=== PATIENT | female | born 1985 | race Caucasian/White ===

== ENCOUNTER 2018-06-11 16:28 | Observation (INO) ==
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
[2018-06-11] MEDS ORDERED: Acetaminophen 325 MG Tablet PO PRN (18:09)
[2018-06-11 19:02] LABS: Baso % (Auto) 0.2 % (0.0-2.0); Eos # (Auto) 0.1 th/mm3 (0.0-0.4); Eos % (Auto) 1.6 % (0.0-4.0); Hematocrit 35.8 % (35.0-46.0); Hemoglobin 12.1 gm/dL (11.6-15.3); Lymph # (Auto) 1.5 th/mm3 (1.0-4.8); Mean Corpuscular HGB Conc 33.7 % (32.0-36.0); Mean Corpuscular Hemoglobin 31.2 pg (27.0-34.0); Mean Corpuscular Volume 92.6 fL (80.0-100.0); Mean Platelet Volume 9.8 fL (7.0-11.0); Mono # (Auto) 0.6 th/mm3 (0.0-0.9); Neut # (Auto) 5.3 th/mm3 (1.8-7.7); Neut % (Auto) 70.2 % (16.0-70.0); Platelet Count 197 th/mm3 (150-450); Red Blood Count 3.87 mil/mm3 (4.00-5.30); Red Cell Distribution Width 13.4 % (11.6-17.2); White Blood Count 7.5 th/mm3 (4.0-11.0)
[2018-06-11 19:37] LABS: Amphetamine Urine With Conf Neg (Neg); Benzodiazepine Urine With Conf Neg (Neg)
[2018-06-11 19:40] LABS: Bacteria,Urine Rare /hpf; Bilirubin,Urine Negative (Negative); Clarity,Urine Clear (Clear); Color,Urine Yellow (Yellw/Straw); Glucose,Urine (UA) Negative (Negative); Leukocyte Esterase,Urine Negative (Negative); Nitrite,Urine Negative (Negative); Specific Gravity,Urine 1.012 (1.002-1.035); Squamous Epithelial Cell,Urine 2 /hpf (0-5); Urobilinogen,Urine 4 or Greater mg/dL (Less than 2)
[2018-06-11 20:38] LABS: Hepatitits B Surface Antigen Nonreactive (Nonreactive)
[2018-06-11] MEDS: Prenatal Vit/Ca/Iron/Folic Acid Tablet PO SCH (21:31)
[2018-06-12] MEDS ORDERED: Diphtheria/Tetanus/Pertussis Vaccine Inj 0.5 ML Syringe IM ONE (08:19)
--- NOTE | 2018-06-12 08:47 | P.OBANTE ---
Subjective Interval History: Ms Houston had no acute events overnight. Mood is pleasant. Keeping sitter for 1:1 due to suicide risk until psychiatry advises otherwise. This morning she complains of itching from her eczema that keeps her awake. States she slept after getting benadryl for the itching last night. She has some Curel lotion for eczema. We will order PRN Eucerin cream and benadryl for itching. Denies LOF , VB, but has good FM. Told pt that discharge dependent on psychiatry visit this morning. Discussed Rhogam and will wait until delivery to decide whether to administer once baby's Rh type is known. Pt will receive TDaP today. Denies CP, SOB, N/V/D and DVT pain. Objective Vital Signs and I&O: Vital Signs 06/11/18 17:00 06/11/18 17:03 06/11/18 19:42 Temperature 97.9 F 97.7 F Pulse Rate 75 Respiratory Rate 17 Blood Pressure 130/86 06/11/18 19:43 06/12/18 00:05 06/12/18 05:05 Temperature 98.2 F 98.0 F Pulse Rate 64 64 62 Respiratory Rate 18 16 14 Blood Pressure 136/90 118/66 127/74 Intake & Output 06/11/18 06/12/18 06/12/18 18:59 06:59 18:59 Weight 65.771 kg Lab and Micro Results: Laboratory Results - last 24 hr 06/11/18 06/11/18 06/11/18 17:30 17:30 17:30 WBC 7.5 RBC 3.87 L Hgb 12.1 Hct 35.8 MCV 92.6 MCH 31.2 MCHC 33.7 RDW 13.4 Plt Count 197 MPV 9.8 Neut % (Auto) 70.2 H Lymph % (Auto) 20.0 [place] % (Auto) 8.0 Eos % (Auto) 1.6 Baso % (Auto) 0.2 Neut # (Auto) 5.3 Lymph # (Auto) 1.5 [place] # (Auto) 0.6 Eos # (Auto) 0.1 Baso # (Auto) 0.0 WBC Differential . Differential Comment Auto diff final Urine Color Urine Clarity Urine pH Ur Specific [place] Urine Protein Urine Glucose (UA) Urine Ketones Urine Occult Blood Urine Nitrate Urine Bilirubin Urine Urobilinogen Ur Leukocyte Esterase Urine RBC Urine WBC Ur Squamous Epith Cells Urine Bacteria Urine Opiates Screen Ur Barbiturates Screen Ur Amphetamine Screen U Benzodiazepines Scrn Urine Cocaine Screen U Cannabinoids Screen Chlam trachomat DNA PCR Hep Bs Antigen Nonreactive Hep B Core IgM Ab Nonreactive Hep C IgG Ab Nonreactive HIV 1&2 Ab/P24 Ag 4thGn Nonreactive N.gonorrhoeae DNA (PCR) Rubella Immunity Screen Immune Rubella Ab, Quant 41.2 Blood Type Blood Type Recheck Antibody Screen 06/11/18 06/11/18 06/11/18 17:30 17:30 17:30 WBC RBC Hgb Hct MCV MCH MCHC RDW Plt Count MPV Neut % (Auto) Lymph % (Auto) [place] % (Auto) Eos % (Auto) Baso % (Auto) Neut # (Auto) Lymph # (Auto) [place] # (Auto) Eos # (Auto) Baso # (Auto) WBC Differential Differential Comment Urine Color Urine Clarity Urine pH Ur Specific [place] Urine Protein Urine Glucose (UA) Urine Ketones Urine Occult Blood Urine Nitrate Urine Bilirubin Urine Urobilinogen Ur Leukocyte Esterase Urine RBC Urine WBC Ur Squamous Epith Cells Urine Bacteria Urine Opiates Screen Neg Ur Barbiturates Screen Neg Ur Amphetamine Screen Neg U Benzodiazepines Scrn Neg Urine Cocaine Screen Neg U Cannabinoids Screen Pos H Chlam trachomat DNA PCR Not detected Hep Bs Antigen Hep B Core IgM Ab Hep C IgG Ab HIV 1&2 Ab/P24 Ag 4thGn N.gonorrhoeae DNA (PCR) Not detected Rubella Immunity Screen Rubella Ab, Quant Blood Type O Negative Blood Type Recheck Required Antibody Screen Negative 06/11/18 17:30 WBC RBC Hgb Hct MCV MCH MCHC RDW Plt Count MPV Neut % (Auto) Lymph % (Auto) [place] % (Auto) Eos % (Auto) Baso % (Auto) Neut # (Auto) Lymph # (Auto) [place] # (Auto) Eos # (Auto) Baso # (Auto) WBC Differential Differential Comment Urine Color Yellow Urine Clarity Clear Urine pH 7.0 Ur Specific [place] 1.012 Urine Protein Negative Urine Glucose (UA) Negative Urine Ketones Negative Urine Occult Blood Small H Urine Nitrate Negative Urine Bilirubin Negative Urine Urobilinogen 4 or greater Ur Leukocyte Esterase Negative Urine RBC Less than 1 Urine WBC 1 Ur Squamous Epith Cells 2 Urine Bacteria Rare H Urine Opiates Screen Ur Barbiturates Screen Ur Amphetamine Screen U Benzodiazepines Scrn Urine Cocaine Screen U Cannabinoids Screen Chlam trachomat DNA PCR Hep Bs Antigen Hep B Core IgM Ab Hep C IgG Ab HIV 1&2 Ab/P24 Ag 4thGn N.gonorrhoeae DNA (PCR) Rubella Immunity Screen Rubella Ab, Quant Blood Type Blood Type Recheck Antibody Screen Physical Exam: GENERAL: Well-nourished, well-developed patient. CARDIOVASCULAR: Regular rate and rhythm without murmurs, gallops, or rubs. RESPIRATORY: Breath sounds equal bilaterally. No accessory muscle use. ABDOMEN/GI: Abdomen soft, non-tender, gravid. Fundus: - GENITOURINARY: External Genitalia: deferred Cervical exam performed 06/11 Cervix: open Dilatation: 1-2 Effacement: 50 Station: - Presentation: -3 Membranes: intact Uterine Contractions: absent FHT's: 06/12/18 Category: 1 Baseline: 125 Reactive: yes Variability: moderate Decels: absent EXTREMITIES: No cyanosis or edema, non-tender, without signs of DVT. Assessment and Plan - Diagnosis (1) Normal in multigravida in third trimester Code(s): Z34.83 - Encounter for supervision of other normal , third trimester Status: Acute Plan: 32 YO at 35/4 weeks per OB limited US 06/11/18 due to late PNC [facility] who referred her to [facility]. Glucola performed at [facility]. Cervix is 1-2/50/-3. FHT with Cat 1 tracing, BL 125, reactive, moderate, and absent decels. Admitted for observation due to moderate-high suicide risk. 1. IUP 35 weeks -Monitor and toco qshift, reassuring FHT strip as above -Limited OB US showing EFW 5lb 15oz with EDC 07/12/18 (35/4 weeks) based on US ; incidental BPP 07/04 with NIYA 15.88 - labs pending, including GBS -UA negative -Encourage smoking cessation -Pt Rh negative; Rhogam deferred until baby Rh type known at -TDaP ordered for today -UDS+ cannabis -PNV 2. Depression -Admitted for OBS due to suicide risk -Performed suicide assessment: moderate-high risk on 06/11/18 -Pt initially denied SI, but then stated she has a plan -Psychiatry consulted; Dr Sloan states she will be seen this morning -Sitter for 1:1 -Case Management consult to assess for needs 3. Eczema -Pt using Curel lotion -Eucerin cream qid -Benadryl 25 mg q6h PO PRN, itching Pt DW Dr Redmond and SW Dr Reilly (2) Depression affecting in third trimester, antepartum Code(s): O99.343 - Other mental disorders complicating , third trimester; F32.9 - Major depressive disorder, single episode, unspecified Status: Acute (3) Eczema Code(s): F32.9 - Major depressive disorder, single episode, unspecified Status : Acute
[2018-06-12] MEDS: Prenatal Vit/Ca/Iron/Folic Acid Tablet PO SCH (10:20)
[2018-06-12 14:56] LABS: Hepatitis A IgM Antibody Nonreactive (Nonreactive)
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
== END 2018-06-12 18:06 ==
LOC: H2E 16:28 → HOBED 16:28 → H2E 19:16
PROVIDERS: ADMIT Obstetrics & Gynecology; ATTEND Obstetrics & Gynecology

== ENCOUNTER 2018-06-12 17:45 | Inpatient (IN) ==
[2018-06-12] MEDS ORDERED: Acetaminophen 325 MG Tablet PO PRN (21:11)
[2018-06-12] MEDS ORDERED: Aluminum/Magnesium/Simethacone Susp 30 ML UDC PO PRN (21:11)
[2018-06-13 09:14] LABS: Anion Gap 10 meq/L (5-15); Blood Urea Nitrogen 10 mg/dL (7-18); Calcium 8.7 mg/dL (8.5-10.1); Carbon Dioxide 23.4 meq/L (21.0-32.0); Chloride 107 meq/L (98-107); Glomerular Filtration Rate Greater Than 89 mL/min (>89); Glucose,Random 57 mg/dL (74-106); Potassium 4.1 meq/L (3.5-5.1); Sodium 140 meq/L (136-145)
[2018-06-13 09:17] LABS: Chol/HDL Ratio 3.69 Ratio; HDL Cholesterol 67.9 mg/dL (40.0-60.0)
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
[2018-06-13] MEDS: Prenatal Vit/Ca/Iron/Folic Acid Tablet PO SCH (10:58)
[2018-06-13] MEDS ORDERED: [UNRECOGNIZED DRUG - REMARK] OTHER SCH (15:00)
[2018-06-13] MEDS ORDERED: Sertraline 50 MG Tablet PO ONE (15:12)
[2018-06-14 06:00] VITALS: RESP 16
[2018-06-14] MEDS: Sertraline 50 MG Tablet PO SCH (08:53)
[2018-06-14] MEDS: Prenatal Vit/Ca/Iron/Folic Acid Tablet PO SCH (08:53)
--- NOTE | 2018-06-14 14:52 | P.PNPSY ---
Subjective Remarks: Patient seen for follow, chart reviewed. Discussion nursing staff reported the patient continued to be tearful, compliant with medications. Patient was found sitting hospital bed noted B, cooperative. Patient states that his mood has been "more of a light in front of me". Patient continues report feeling depressed but more hopeful today and denying any suicidal ideations. Patient states that she has slept well, eating and drinking well, having some constipation and she has not had a bowel movement 2 days. Patient continues to do noted to be somewhat tearful throughout interview but stated that she has a plan to coordinate with the adoption agency for housing until delivery of the baby. Patient denies any perceptional services or delusions. Review of Systems All other systems reviewed negative except as stated in HPI Mental Status Examination Appearance: Appropriate Consciousness: Alert Orientation: x4 Motor Activity: Normal gait Speech: Unremarkable Language: Adequate Fund of Knowledge: Inadequate Attention and Concentration: Adequate Memory: Unremarkable Mood: Sad Affect: Sad, Other (Tearful) Thought Process & Associations: Intact, Logical, Linear Thought Content: Appropriate Hallucination Type: None Delusion Type: None Suicidal Ideation: No Suicidal Plan: No Suicidal Intention: No Homicidal Ideation: No Homicidal Plan: No Homicidal Intention: No Insight: Fair Judgment: Impulsive Assessment and Plan - Assessment (1) Major depressive disorder Code(s): F32.9 - Major depressive disorder, single episode, unspecified Status : Acute - Plan Plan: Patient continues with depressed mood although lessening and now more hopeful and denying any suicide ideations. We will continue to titrate sertraline to 50 mg p.o. daily for depression, continue rest of medications. We will add Colace 100 mg p.o. twice daily for constipation. We will continue to monitor mood and behavior. Discharge planning in progress. Justification for Continued Inpatient Stay: At risk of further decompensation a lower level care. (1) Major depressive disorder Qualifiers: Major depression recurrence: single episode Active/Remission status: currently active Major depression episode severity: severe Psychotic features : without psychotic features Qualified Code(s): F32.2 - Major depressive disorder, single episode, severe without psychotic features
[2018-06-14] MEDS: Docusate Sodium 100 MG Capsule PO SCH (15:43)
[2018-06-15] MEDS: Docusate Sodium 100 MG Capsule PO SCH ×2 (05:20→12:07)
[2018-06-15 06:07] VITALS: BP 122/69; PULSE 73; TEMP 97.8; O2SAT 100
[2018-06-15] MEDS: Prenatal Vit/Ca/Iron/Folic Acid Tablet PO SCH (08:02)
[2018-06-15] MEDS: Sertraline 50 MG Tablet PO SCH (08:02)
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
== END 2018-06-15 12:45 | disposition home or self-care (01) ==
LOC: H4EA 17:45
PROVIDERS: ADMIT Student in an Organized Health Care Education/Training Program; ATTEND Student in an Organized Health Care Education/Training Program
DX: O99.333 Smoking (tobacco) complicating pregnancy, third trimester; Z3A.35 35 weeks gestation of pregnancy; F17.210 Nicotine dependence, cigarettes, uncomplicated; Z85.41 Personal history of malignant neoplasm of cervix uteri; Z88.0 Allergy status to penicillin; O99.343 Other mental disorders complicating pregnancy, third trimester; O99.323 Drug use complicating pregnancy, third trimester; F12.90 Cannabis use, unspecified, uncomplicated; L30.9 Dermatitis, unspecified; F32.2 Major depressive disorder, single episode, severe without psychotic features; Z91.410 Personal history of adult physical and sexual abuse; K59.00 Constipation, unspecified; R45.851 Suicidal ideations

== ENCOUNTER 2018-06-25 15:11 | Inpatient (IN) ==
[2018-06-25] MEDS ORDERED: Measles/Mumps/Rubella Vaccine Inj 0.5 ML Vial SQ ONE (16:00)
[2018-06-25] MEDS ORDERED: Diphtheria/Tetanus/Pertussis Vaccine Inj 0.5 ML Syringe IM ONE (16:00)
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
[2018-06-25] MEDS ORDERED: Zolpidem Tartrate 5 MG Tablet PO PRN ×2 (16:16→21:00)
[2018-06-25] MEDS ORDERED: Acetaminophen 325 MG Tablet PO PRN ×2 (16:16→20:51)
--- NOTE | 2018-06-25 16:16 | P.HPOB ---
History of Present Illness Primary Care Physician: NOT REQUIRED Dr. Tompkins Chief Complaint: Contractions, sent over from the office History of Present Illness: Patient is a 32-year-old white female 3738 weeks presents with contractions and sent over from the Dr. Tompkins's office. The patient was noted to be 4 cm in her office. She has no rupture membranes and only minimal bleeding. heart rate tracing is reactive she is liam irregularly. Weeks Gestation:: 37 Para: 2 : 4 Total # of Miscarriage(s): 1 Review of Systems Constitutional: Denies anorexia, Denies body ache(s), Denies chills, Denies daytime sleepiness, Denies excessive sweating, Denies fatigue, Denies fever(s), Denies headache(s), Denies increased appetite, Denies lack of energy, Denies malaise, Denies night sweats, Denies weakness, Denies weight gain, Denies weight loss, Denies other Cardiovascular: Denies bluish discoloration of hand/feet, Denies chest pain, Denies chest pain at rest, Denies chest pain with activity, Denies excessive sweating, Denies fainting, Denies fast heart rate, Denies foot swelling, Denies generalized swelling, Denies irregular heart rhythm, Denies leg pain with activity, Denies leg sores, Denies leg swelling, Denies lightheadedness, Denies radiating jaw, neck or arm pain, Denies rapid, pounding, or irregular heartbeat , Denies shortness of breath, Denies shortness of breath with activity, Denies shortness of breath when lying down, Denies shortness of breath causing sudden awakening, Denies slow heart rate, Denies other Respiratory: Denies change in phlegm color, Denies chest congestion, Denies cough, Denies coughing up blood, Denies excessive phlegm production, Denies pain on inspiration, Denies pain with cough, Denies shortness of breath, Denies shortness of breath with activity, Denies snoring, Denies stridor, Denies wheezing, Denies other Gastrointestinal: Denies abdominal pain, Denies belching, Denies black, tarry stools, Denies bloating, Denies bright, red blood in stools, Denies change in bowel habits, Denies constant urge to pass stool, Denies change in stools, Denies coffee ground vomit, Denies constipation, Denies cramping, Denies difficulty swallowing, Denies excessive passing of gas, Denies feeling full early, Denies heartburn, Denies incontinent of stools, Denies loose stools, Denies nausea, Denies pain with swallowing, Denies vomiting, Denies vomiting blood, Denies other Genitourinary: Denies abnormal periods, Denies abnormal vaginal bleeding, Denies absent period, Denies bleeding between periods, Denies blood in urine, Denies difficulty starting urination, Denies difficulty urinating, Denies dribbling after urination, Denies frequent nighttime urination, Denies genital itching, Denies genital lesions, Denies heavy periods, Denies hot flashes, Denies light periods, Denies nipple discharge, Denies painful intercourse, Denies painful periods, Denies painful urination, Denies pelvic pain, Denies prolapse symptoms, Denies sexual problems, Denies side pain, Denies urinary incontinence, Denies urinary urgency, Denies vaginal discharge, Denies vaginal dryness, Denies vaginal odor, Denies vaginal itching, Denies other Neurologic: Denies abnormal hearing, Denies abnormal movements, Denies abnormal speech, Denies abnormal walking, Denies behavioral changes, Denies burning sensations, Denies confusion, Denies dizziness, Denies fainting, Denies frequent falls, Denies headache(s), Denies lack of coordination, Denies localized weakness, Denies loss of vision, Denies memory loss, Denies numbness, Denies other visual disturbances, Denies radiating pain, Denies restless legs, Denies convulsions, Denies seizure-like activity, Denies sensory deficit, Denies tingling, Denies tingling/numbness/burning sensations, Denies tremor(s), Denies unsteadiness, Denies weakness, Denies other PMFSH - Medical History Medical History: Medical History (Last Updated 06/11/18 @ 17:31 by Roberto Carlos Fuller III, MD, R2) 36 weeks gestation of Decreased movement affecting management of in third trimester Eczema Major depressive disorder - Family History Family History: Family History (Last Updated 06/11/18 @ 17:31 by Roberto Carlos Fuller III, MD, R2) Other Adopted - Tobacco History Second Hand Smoke Exposure: Yes Smoking Status: Current every day smoker Tobacco Type: Cigarettes Cigarettes Per Day: 10 - Alcohol History How Often Do You Have a Drink Containing Alcohol: Monthly or less (quit drinking in December) - Substance Use History Substance History: Active Abuse - Travel History History of Recent Travel: No Recent Travel in the [place] Within the Last 8 Weeks: No Recent Travel Out of the Country Within the Last 8 Weeks: No Medications and Allergies Allergies Allergy/AdvReac Type Severity Reaction Status Date / Time Penicillins Allergy Swelling Verified 06/11/18 16:43 of Lip/Tongue/Throat Exam Vital signs: Vital Signs 06/25/18 15:32 06/25/18 15:35 06/25/18 16:05 Temperature 98.3 F Pulse Rate 70 77 Respiratory Rate 18 Blood Pressure 131/76 Intake & Output 06/24/18 06/25/18 06/25/18 18:59 06:59 18:59 Weight 66.224 kg - Constitutional no acute distress - Routine HEENT Exam Head: Present: normocephalic, atraumatic Eye: Present: PERRL - Routine Respiratory Exam Present: CTA bilaterally - Routine Cardiovascular Exam Present: RRR - Routine Abdominal Exam Present: soft Comments: Size equal dates - Routine Exam Comments: Cervix is 5/80/ -1/vtx with a bulging bag - Routine Skin Exam Present: intact - Routine Neurological Exam Present: alert, oriented X3, CN II-XII intact Caprini VTE Risk Assessment Caprini VTE Risk Assessment: No/Low Risk (score <= 1) Caprini Risk Assessment Model: Point Value = 1 Point Value = 2 Point Value = 3 Point Value = 5 Age 41-60 Minor surgery BMI > 25 kg/m2 Swollen legs Varicose veins or History of unexplained or recurrent spontaneous Oral contraceptives or hormone replacement Sepsis (< 1 month) Serious lung disease, including pneumonia (< 1 month) Abnormal pulmonary function Acute myocardial infarction Congestive heart failure (< 1 month) History of inflammatory bowel disease Medical patient at bed rest Age 61-74 Arthroscopic surgery Major open surgery (> 45 min) Laparoscopic surgery (> 45 min) Malignancy Confined to bed (> 72 hours) Immobilizing plaster cast Central venous access Age >= 75 History of VTE Family history of VTE Factor V Leiden Prothrombin [id number] Lupus anticoagulant Anticardiolipin antibodies Elevated serum homocysteine Heparin-induced thrombocytopenia Other congenital or acquired thrombophilia Stroke (< 1 month) Elective arthroplasty Hip, pelvis, or leg fracture Acute spinal cord injury (< 1 month) Prophylaxis Regimen: Total Risk Factor Score Risk Level Prophylaxis Regimen 0-1 Low Early ambulation 2 Moderate Order ONE of the following: *Sequential Compression Device (SCD) *Heparin 5000 units SQ BID 3-4 Higher Order ONE of the following medications: *Heparin 5000 units SQ TID *Enoxaparin/Lovenox 40 mg SQ daily (WT < 150 kg, CrCl > 30 mL/min) *Enoxaparin/Lovenox 30 mg SQ daily (WT < 150 kg, CrCl > 10-29 mL/min) *Enoxaparin/Lovenox 30 mg SQ BID (WT < 150 kg, CrCl > 30 mL/min) AND/OR *Sequential Compression Device (SCD) 5 or more Highest Order ONE of the following medications: *Heparin 5000 units SQ TID (Preferred with Epidurals) *Enoxaparin/Lovenox 40 mg SQ daily (WT < 150 kg, CrCl > 30 mL/min) *Enoxaparin/Lovenox 30 mg SQ daily (WT < 150 kg, CrCl > 10-29 mL/min) *Enoxaparin/Lovenox 30 mg SQ BID (WT < 150 kg, CrCl > 30 mL/min) AND *Sequential Compression Device (SCD) Assessment and Plan - Diagnosis (1) Uterine contractions during Code(s): O62.2 - Other uterine inertia Status: Acute (2) 37 or more weeks gestation of Status: Acute - Plan Because this patient is a multiparous patient with advanced dilated cervix 5 cm 80% effaced so the patient is to be kept and monitored for cervical change her labor progress. Another point that supports that decision is to fax she lives in a hotel and would have to get a cab or Uber route delivery driver to bring her to the hospital if things worsen there so she needs to be monitored here overnight and in the morning if she still the same the contractions are spaced out or stopped and she could go home at that point but it is quite likely in the night things will change for this patient
[2018-06-25] MEDS ORDERED: Sod Chloride 0.9% Inj 1,000 ML IV.CONT PRN (18:30)
[2018-06-25] MEDS ORDERED: fentaNYL Citrate Inj 100 MCG/2 ML Ampul IV.PUSH PRN ×2 (18:30)
[2018-06-25] MEDS ORDERED: Naloxone Inj 0.4 MG/ML Vial IV.PUSH PRN ×2 (18:30→20:51)
[2018-06-25] MEDS ORDERED: Sodium Chlor 0.9% Inj 500 ML IV.SIG PRN (18:30)
[2018-06-25] MEDS ORDERED: Citric Acid/Sodium Citrate Liq 30 ML UDC PO SCH (18:30)
[2018-06-25] MEDS ORDERED: Oxytocin 30 Units/500ml Premix 30 UNITS/500 ML BAG IV.SIG ONE (18:30)
--- NOTE | 2018-06-25 18:30 | P.OBLABOR ---
Subjective Interval history: patient sent from office and evaluated by Dr. Osei H & P dictated. I checked her cervix at 5 and caused ROM inadevertantly (before IV) she was admitted. strip category one. contractions are mild She was 7 cm. clear copious fluid. Objective Vital Signs: Vital Signs - 8 hr 06/25/18 15:32 06/25/18 15:35 06/25/18 16:05 Temperature 98.3 F Pulse Rate 70 77 Respiratory Rate 18 Blood Pressure 131/76 06/25/18 18:15 06/25/18 18:16 Temperature 99.2 F Pulse Rate 69 72 Respiratory Rate 16 Blood Pressure 132/85 Objective: Pelvic Exam: Cervix: [-] Dilatation: [-] Effacement: [-] Station: [-] Presentation: [-] Membranes: [intact or ruptured] Uterine Contractions: [-] FHT's: Category: [-] Baseline: [-] Reactive: [-] Variability: [-] Decels: [-] Assessment and Plan - Plan Because this patient is a multiparous patient with advanced dilated cervix 5 cm 80% effaced so the patient is to be kept and monitored for cervical change her labor progress. Another point that supports that decision is to fax she lives in a hotel and would have to get a cab or Uber motorcoach driver to bring her to the hospital if things worsen there so she needs to be monitored here overnight and in the morning if she still the same the contractions are spaced out or stopped and she could go home at that point but it is quite likely in the night things will change for this patient
[2018-06-25] MEDS ORDERED: Oxytocin 30 Units/500ml Premix 30 UNITS/500 ML BAG IV.SIG PRN (18:40)
[2018-06-25 19:09] LABS: Baso # (Auto) 0.1 th/mm3 (0.0-0.2); Baso % (Auto) 0.5 % (0.0-2.0); Eos # (Auto) 0.1 th/mm3 (0.0-0.4); Eos % (Auto) 1.1 % (0.0-4.0); Hematocrit 38.4 % (35.0-46.0); Hemoglobin 12.9 gm/dL (11.6-15.3); Lymph # (Auto) 1.8 th/mm3 (1.0-4.8); Mean Corpuscular HGB Conc 33.5 % (32.0-36.0); Mean Corpuscular Hemoglobin 30.6 pg (27.0-34.0); Mean Corpuscular Volume 91.2 fL (80.0-100.0); Mean Platelet Volume 10.3 fL (7.0-11.0); Mono # (Auto) 0.6 th/mm3 (0.0-0.9); Mono % (Auto) 4.5 % (0.0-8.0); Neut # (Auto) 10.3 th/mm3 (1.8-7.7); Neut % (Auto) 79.9 % (16.0-70.0); Platelet Count 185 th/mm3 (150-450); Red Blood Count 4.21 mil/mm3 (4.00-5.30); Red Cell Distribution Width 14.1 % (11.6-17.2); White Blood Count 12.9 th/mm3 (4.0-11.0)
[2018-06-25 19:10] LABS: Amorphous Sediment,Urine Rare /hpf; Bilirubin,Urine Negative (Negative); Calcium Oxalate Crystals,Urine Occasional /hpf; Clarity,Urine Cloudy (Clear); Color,Urine Yellow (Yellw/Straw); Glucose,Urine (UA) Negative (Negative); Leukocyte Esterase,Urine Negative (Negative); Mucus,Urine Few /lpf (Occasional); Nitrite,Urine Negative (Negative); Specific Gravity,Urine 1.017 (1.002-1.035); Squamous Epithelial Cell,Urine 1 /hpf (0-5)
[2018-06-25 19:12] LABS: Amphetamine Screen,Urine Neg (Neg); Barbiturate Screen,Urine Neg (Neg); Cannabinoid Screen,Urine Pos (Neg); Cocaine Screen,Urine Neg (Neg); Opiate Screen,Urine Neg (Neg)
[2018-06-25] MEDS ORDERED: Lidocaine PF 1% Inj 30 ML Vial ONE (19:37)
[2018-06-25] MEDS ORDERED: Lidocaine 1% Inj 50 ML Vial ONE (19:42)
[2018-06-25 19:50] LABS: Amphetamine Urine With Conf Neg (Neg); Benzodiazepine Urine With Conf Neg (Neg)
[2018-06-25] MEDS ORDERED: Benzocaine 20% Top Spray 60 ML Can TOPICAL PRN (20:51)
[2018-06-25] MEDS ORDERED: Bisacodyl 10 MG Supp RECTAL PRN (20:51)
[2018-06-25] MEDS ORDERED: Sertraline 50 MG Tablet PO ONE (20:53)
--- NOTE | 2018-06-25 20:55 | P.OBDELI ---
Weeks Gestation: 37 Patient Started Active Labor: Yes Medical Induction of Labor: No Artificial Rupture of Membrane: No Anesthesia: None Episiotomy: none Vaginal Delivery: Normal Presentation: Occiput anterior Nuchal Cord: None Delayed Cord Clamping (45 sec): Yes Placenta: Spontaneous delivery, Other (bilobed placenta) Estimated blood loss (mL): 200 : Male (9 and 9 apgars weight pending baby for adoption bilobed placenta) , Single, Multiple (being placed for adoption)
[2018-06-25] MEDS ORDERED: Witch Hazel 50%/Glyderin 12.5% 40 Pad Jar RECTAL PRN (21:00)
[2018-06-25] MEDS ORDERED: Oxytocin 30 Units/500ml Premix 30 UNITS/500 ML BAG IV.CONT SCH (21:00)
[2018-06-25] MEDS: Ibuprofen 400 MG Tablet PO PRN (21:34)
[2018-06-25] MEDS: Senna/Docusate Sodium 8.6/50 MG Tablet PO SCH (22:50)
[2018-06-26] MEDS: Ibuprofen 400 MG Tablet PO PRN ×3 (05:23→22:48)
--- NOTE | 2018-06-26 07:49 | P.PNOB ---
Subjective Post day: 1 Interval history: Patient doing well, vaginal bleeding less than menses, mood appropriate, no suicidal homicidal ideations, pain controlled. Objective Vital Signs/I&O: Vital Signs 06/25/18 15:32 06/25/18 15:35 06/25/18 16:05 Temperature 98.3 F Pulse Rate 70 77 Respiratory Rate 18 Blood Pressure 131/76 06/25/18 17:25 06/25/18 17:55 06/25/18 18:15 Temperature Pulse Rate 72 75 69 Respiratory Rate Blood Pressure 06/25/18 18:16 06/25/18 19:34 06/25/18 19:35 Temperature 99.2 F Pulse Rate 72 68 Respiratory Rate 16 18 Blood Pressure 132/85 144/91 H 06/25/18 20:58 06/25/18 20:59 06/25/18 21:15 Temperature 97.6 F Pulse Rate 73 68 Respiratory Rate 18 Blood Pressure 155/86 H 156/90 H 06/25/18 21:16 06/25/18 21:33 06/25/18 22:30 Temperature Pulse Rate 64 67 Respiratory Rate 18 18 Blood Pressure 144/93 H 148/94 H 06/25/18 23:00 Temperature 98.0 F Pulse Rate 69 Respiratory Rate 18 Blood Pressure 133/77 Intake & Output 06/25/18 06/26/18 06/26/18 18:59 06:59 18:59 Weight 66.224 kg Result Diagrams: 06/25/18 18:33 Objective Remarks: GENERAL: Well-nourished, well-developed patient. CARDIOVASCULAR: Regular rate and rhythm without murmurs, gallops, or rubs. RESPIRATORY: Breath sounds equal bilaterally. No accessory muscle use. ABDOMEN/GI: Abdomen soft, non-tender. Fundus: Firm, non-tender at umbilicus. GENITOURINARY: Light to moderate bleeding. EXTREMITIES: No cyanosis or edema, non-tender, without signs of DVT. Medications and IVs: Active Medications Acetaminophen (Tylenol) 650 mg PO Q4H PRN PRN Reason: PAIN SCALE 1 TO 2 Al Hydroxide/Mg Hydroxide (Milk Of Magnesia Liq) 30 ml PO Q12H PRN PRN Reason: Mild Constipation Benzocaine (Americaine 20% Top [place]) 1 spray TOPICAL Q4H PRN PRN Reason: For Perineum Discomfort Last Admin: 06/26/18 05:23 Dose: 1 spray Bisacodyl (Dulcolax Supp) 10 mg RECTAL DAILY PRN PRN Reason: SEVERE CONSITIPATION Citric Acid/Sodium Citrate (Sodium Citrate/Citric Acid Liq) 30 ml PO DATA REPORT ANALYST [facility] Stop: 06/29/18 18:29 Fentanyl Citrate (Fentanyl Inj) 50 mcg IV.PUSH Q1H PRN PRN Reason: Pain Scale 3 - 5 Fentanyl Citrate (Fentanyl Inj) 100 mcg IV.PUSH Q1H PRN PRN Reason: PAIN SCALE 6 TO 10 Last Admin: 06/25/18 19:36 Dose: 100 mcg Lactated Ringer's (Lr 1000 Ml Inj) 1,000 mls @ 125 mls/hr IV.CONT .Q8H JT Last Admin: 06/25/18 22:44 Dose: Not Given Lactated Ringer's (Lr 1000 Ml Inj) 1,000 mls @ 3,000 mls/hr IV.SIG UNSCH PRN PRN Reason: compromise or epidural Sodium Chloride (Ns Inj) 500 mls @ 1,000 mls/hr IV.SIG UNSCH PRN PRN Reason: SEE LABEL COMMENTS Sodium Chloride (Ns Inj) 1,000 mls @ 100 mls/hr IV.CONT .Q10H PRN PRN Reason: SEE LABEL COMMENTS Oxytocin (Pitocin 30 Units/Ns 500 Ml Premix) 30 units in 500 mls @ 2 mls/hr IV.SIG TITRATE PRN; Protocol PRN Reason: For induction of labor Ibuprofen (Motrin) 800 mg PO Q8H PRN PRN Reason: For cramping Last Admin: 06/26/18 05:23 Dose: 800 mg Lactulose (Lactulose Liq) 30 ml PO DAILY PRN PRN Reason: SEVERE CONSITIPATION Lidocaine HCl (Xylocaine 1% Inj) 0.1 ml I-DERMAL PRN PRN PRN Reason: For IV start Stop: 06/28/18 18:29 Lidocaine HCl (Xylocaine 1% Inj) 10 ml INFILTRATN PRN PRN PRN Reason: For episiotomy repair Stop: 06/27/18 18:29 Mineral Oil (Muri-Lube Oil) 10 ml TOPICAL PRN PRN PRN Reason: PRN perineal massage Naloxone HCl (Narcan Inj) 0.1 mg IV.PUSH Q2M PRN PRN Reason: for opiate reversal Naloxone HCl (Narcan Inj) 0.1 mg IV.PUSH Q2M PRN PRN Reason: for opiate reversal Non-Formulary Medication (Prenat.Vits,Uriel,Qfz-Ganx-Tshaw [ Vitamin]) 1 tab PO DAILY [facility] Ondansetron HCl (Zofran Odt) 4 mg PO Q6H PRN PRN Reason: NAUSEA OR VOMITING Ondansetron HCl (Zofran Odt) 4 mg PO Q6H PRN PRN Reason: NAUSEA OR VOMITING Senna/Docusate Sodium (Rossana-Colace) 1 tab PO BID [facility] Last Admin: 06/25/18 22:50 Dose: 1 tab Sennosides (Senokot) 17.2 mg PO Q12H PRN PRN Reason: Moderate Constipation Sertraline HCl (Zoloft) 50 mg PO DAILY [facility] Sodium Chloride (Ns Flush) 2 ml IV.FLUSH BID [facility] Last Admin: 06/25/18 22:45 Dose: Not Given Sodium Chloride (Ns Flush) 2 ml IV.FLUSH PRN PRN PRN Reason: FLUSH AFTER USING IV ACCESS Sodium Chloride (Ns Flush) 2 ml IV.FLUSH BID [facility] Last Admin: 06/25/18 22:45 Dose: Not Given Sodium Chloride (Ns Flush) 2 ml IV.FLUSH PRN PRN PRN Reason: FLUSH AFTER USING IV ACCESS Witch Katerin/Glycerin (Tucks Pads) 1 applicatio RECTAL QID PRN PRN Reason: HEMORRHOIDS Last Admin: 06/26/18 05:23 Dose: 1 applicatio Zolpidem Tartrate (Ambien) 5 mg PO HS PRN PRN Reason: SLEEP Last Admin: 06/25/18 23:00 Dose: 5 mg Zolpidem Tartrate (Ambien) 5 mg PO HS PRN PRN Reason: SLEEP Assessment and Plan - Plan 32-year-old 0-2 status post at 37 weeks and 4 days 1. day #1: Afebrile, vital signs stable, continue routine care, discussed precautions, expectations and follow-up. Anticipate discharge home tomorrow. -New born male is up for adoption: Consult case management for assistance. 2. History of depression: Continue her home Zoloft, follow-up in 2 weeks in the office for mood check 3. Marijuana use/History of opioid use disorder: Sent with NSAIDs only for pain control, patient is not breast-feeding. 4. Elevated blood pressures: Around time of delivery, normotensive since, discussed preeclampsia precautions.
[2018-06-26] MEDS: Senna/Docusate Sodium 8.6/50 MG Tablet PO SCH (08:00)
[2018-06-26] MEDS: Sertraline 50 MG Tablet PO SCH (08:00)
[2018-06-26] MEDS ORDERED: Non-Formulary Drug (Prenat.Vits,Cal,Min-Iron-Folic [Prenatal Vitamin] 1 TAB) PO SCH (09:00)
[2018-06-27] MEDS: Sertraline 50 MG Tablet PO SCH (08:32)
[2018-06-27] MEDS: Ibuprofen 400 MG Tablet PO PRN (08:33)
[2018-06-27] MEDS: Senna/Docusate Sodium 8.6/50 MG Tablet PO SCH ×2 (08:33→08:36)
--- NOTE | 2018-06-27 08:38 | P.PNOB ---
Subjective Post day: 2 Objective Vital Signs/I&O: Vital Signs 06/26/18 20:00 Temperature 98.5 F Pulse Rate 64 Respiratory Rate 18 Blood Pressure 119/72 Result Diagrams: 06/25/18 18:33 Objective Remarks: GENERAL: Well-nourished, well-developed patient. CARDIOVASCULAR: Regular rate and rhythm without murmurs, gallops, or rubs. RESPIRATORY: Breath sounds equal bilaterally. No accessory muscle use. ABDOMEN/GI: Abdomen soft, non-tender. Fundus: Firm, non-tender at umbilicus. GENITOURINARY: Light to moderate bleeding. EXTREMITIES: No cyanosis or edema, non-tender, without signs of DVT. Medications and IVs: Active Medications Acetaminophen (Tylenol) 650 mg PO Q4H PRN PRN Reason: PAIN SCALE 1 TO 2 Al Hydroxide/Mg Hydroxide (Milk Of Magnesia Liq) 30 ml PO Q12H PRN PRN Reason: Mild Constipation Benzocaine (Americaine 20% Top [place]) 1 spray TOPICAL Q4H PRN PRN Reason: For Perineum Discomfort Last Admin: 06/26/18 05:23 Dose: 1 spray Bisacodyl (Dulcolax Supp) 10 mg RECTAL DAILY PRN PRN Reason: SEVERE CONSITIPATION Citric Acid/Sodium Citrate (Sodium Citrate/Citric Acid Liq) 30 ml PO [employer] [facility] Stop: 06/29/18 18:29 Fentanyl Citrate (Fentanyl Inj) 50 mcg IV.PUSH Q1H PRN PRN Reason: Pain Scale 3 - 5 Fentanyl Citrate (Fentanyl Inj) 100 mcg IV.PUSH Q1H PRN PRN Reason: PAIN SCALE 6 TO 10 Last Admin: 06/25/18 19:36 Dose: 100 mcg Lactated Ringer's (Lr 1000 Ml Inj) 1,000 mls @ 125 mls/hr IV.CONT .Q8H [facility] Last Admin: 06/25/18 22:44 Dose: Not Given Lactated Ringer's (Lr 1000 Ml Inj) 1,000 mls @ 3,000 mls/hr IV.SIG UNSCH PRN PRN Reason: compromise or epidural Sodium Chloride (Ns Inj) 500 mls @ 1,000 mls/hr IV.SIG UNSCH PRN PRN Reason: SEE LABEL COMMENTS Sodium Chloride (Ns Inj) 1,000 mls @ 100 mls/hr IV.CONT .Q10H PRN PRN Reason: SEE LABEL COMMENTS Oxytocin (Pitocin 30 Units/Ns 500 Ml Premix) 30 units in 500 mls @ 2 mls/hr IV.SIG TITRATE PRN; Protocol PRN Reason: For induction of labor Ibuprofen (Motrin) 800 mg PO Q8H PRN PRN Reason: For cramping Last Admin: 06/27/18 08:33 Dose: 800 mg Lactulose (Lactulose Liq) 30 ml PO DAILY PRN PRN Reason: SEVERE CONSITIPATION Lidocaine HCl (Xylocaine 1% Inj) 0.1 ml I-DERMAL PRN PRN PRN Reason: For IV start Stop: 06/28/18 18:29 Lidocaine HCl (Xylocaine 1% Inj) 10 ml INFILTRATN PRN PRN PRN Reason: For episiotomy repair Stop: 06/27/18 18:29 Mineral Oil (Muri-Lube Oil) 10 ml TOPICAL PRN PRN PRN Reason: PRN perineal massage Naloxone HCl (Narcan Inj) 0.1 mg IV.PUSH Q2M PRN PRN Reason: for opiate reversal Naloxone HCl (Narcan Inj) 0.1 mg IV.PUSH Q2M PRN PRN Reason: for opiate reversal Non-Formulary Medication (Prenat.Vits,Uriel,[place]ut-[place]euo-[place] [ Vitamin]) 1 tab PO DAILY [facility] Last Admin: 06/26/18 08:00 Dose: Not Given Ondansetron HCl (Zofran Odt) 4 mg PO Q6H PRN PRN Reason: NAUSEA OR VOMITING Ondansetron HCl (Zofran Odt) 4 mg PO Q6H PRN PRN Reason: NAUSEA OR VOMITING Senna/Docusate Sodium ([place]-Colace) 1 tab PO BID [facility] Last Admin: 06/27/18 08:36 Dose: 1 tab Sennosides (Senokot) 17.2 mg PO Q12H PRN PRN Reason: Moderate Constipation Sertraline HCl (Zoloft) 50 mg PO DAILY [facility] Last Admin: 06/27/18 08:32 Dose: 50 mg Sodium Chloride (Ns Flush) 2 ml IV.FLUSH BID [facility] Last Admin: 06/26/18 08:00 Dose: Not Given Sodium Chloride (Ns Flush) 2 ml IV.FLUSH PRN PRN PRN Reason: FLUSH AFTER USING IV ACCESS Sodium Chloride (Ns Flush) 2 ml IV.FLUSH BID JT Last Admin: 06/26/18 08:00 Dose: Not Given Sodium Chloride (Ns Flush) 2 ml IV.FLUSH PRN PRN PRN Reason: FLUSH AFTER USING IV ACCESS Witch Katerin/Glycerin (Tucks Pads) 1 applicatio RECTAL QID PRN PRN Reason: HEMORRHOIDS Last Admin: 06/26/18 05:23 Dose: 1 applicatio Zolpidem Tartrate (Ambien) 5 mg PO HS PRN PRN Reason: SLEEP Last Admin: 06/25/18 23:00 Dose: 5 mg Zolpidem Tartrate (Ambien) 5 mg PO HS PRN PRN Reason: SLEEP Assessment and Plan - Plan 32-year-old 0-2 status post at 37 weeks and 4 days 1. day #1: Afebrile, vital signs stable, continue routine care, discussed precautions, expectations and follow-up. Anticipate discharge home tomorrow. -New born male is up for adoption: Consult case management for assistance. 2. History of depression: Continue her home Zoloft, follow-up in 2 weeks in the office for mood check 3. Marijuana use/History of opioid use disorder: Sent with NSAIDs only for pain control, patient is not breast-feeding. 4. Elevated blood pressures: Around time of delivery, normotensive since, discussed preeclampsia precautions. Discharge Planning: home today follow up with Juliana Martin for counseling needs stroller/car seat [facility] RTO 4 weeks or prn
[2018-06-27 12:05] VITALS: BP 107/51; PULSE 87; RESP 20; TEMP 98.4; O2SAT 98
== END 2018-06-27 15:50 | disposition home or self-care (01) ==
LOC: HOBED 15:11 → H2E 16:21 → H1EA 22:54
PROVIDERS: ADMIT Obstetrics & Gynecology; ATTEND Obstetrics & Gynecology